=== PATIENT | male | born 1985 | race Two or more races ===

== ENCOUNTER 2019-06-13 18:24 | Emergency (ER) | payer OTHER ==
[~2019-06-13] VITALS: Ht 167.6 cm; Wt 81.6 kg
[2019-06-13 19:12] VITALS: BP 116/70
== END 2019-06-14 02:56 | disposition left against medical advice (07) ==
LOC: ER 18:31
DX: S30.0XXA Contusion of lower back and pelvis, initial encounter (principal); Z53.21 Procedure and treatment not carried out due to patient leaving prior to being seen by health care provider; V29.9XXA Motorcycle rider (driver) (passenger) injured in unspecified traffic accident, initial encounter; Y93.89 Activity, other specified; Y92.89 Other specified places as the place of occurrence of the external cause; Y99.8 Other external cause status
CPT/HCPCS: 72131